=== PATIENT | female | born 1960 | race Hispanic/Latino ===

== ENCOUNTER → 2022-04-18 | Outpatient (CLI) | payer MEDICARE | END | disposition home or self-care (01) | LOC: SHCH 13:44 | PROVIDERS: ATTEND Internal Medicine Cardiovascular Disease | DX: I87.2 Venous insufficiency (chronic) (peripheral) (principal) | CPT/HCPCS: 93970 ==

== ENCOUNTER → 2022-11-14 | Outpatient (CLI) | payer MEDICARE | END | disposition home or self-care (01) | LOC: RAH 07:07 | PROVIDERS: ATTEND Internal Medicine Gastroenterology | DX: R14.0 Abdominal distension (gaseous) (principal); R10.12 Left upper quadrant pain | CPT/HCPCS: 78264; A9541 ==

== ENCOUNTER → 2024-02-24 | Outpatient (CLI) | payer MEDICARE ==
[~2024-02-24] MED LIST: IOHEXOL-350 75 ML VIAL IV ONE
== END | disposition home or self-care (01) ==
LOC: RAH 08:56
PROVIDERS: ATTEND Internal Medicine Gastroenterology
DX: K76.0 Fatty (change of) liver, not elsewhere classified (principal); K57.30 Diverticulosis of large intestine without perforation or abscess without bleeding; R10.32 Left lower quadrant pain; R10.10 Upper abdominal pain, unspecified
CPT/HCPCS: 74177; Q9967